=== PATIENT | female | born 1965 | race Caucasian/White ===

== ENCOUNTER 2016-09-26 12:22 | Emergency (ER) | payer BC ==
[2016-09-26] MEDS: Sodium Chloride 0.9% 1,000 ML IV ONE (13:11)
[2016-09-26] MEDS: Metoclopramide 10 MG/2 ML SDV IV ONE (13:12)
[2016-09-26] MEDS: Ketorolac 30 MG/ML SDV IVPUSH ONE (13:16)
[2016-09-26] MEDS: diphenhydrAMINE 50 MG/ML SDV IVPUSH ONE (13:21)
[2016-09-26] MEDS: LORazepam 2 MG/ML MDV IVPUSH ONE (13:26)
--- NOTE | 2016-09-26 13:50 | EDM.PDOC ---
ED HPI GENERAL MEDICAL PROBLEM - General Chief Complaint: Headache Stated Complaint: MIGRAINE Time Seen by Provider: 09/26/16 12:40 Source of Information: Reports: Patient History Limitations: Reports: No limitations - History of Present Illness INITIAL COMMENTS - FREE TEXT/NARRATIVE: HISTORY AND PHYSICAL: History of present illness: Patient is a 50-year-old female who is being treated currently for her breast cancer. She comes to the ED from the cancer Center today because of a headache that she has had for 2 weeks. She is also supposed to be getting chemotherapy tomorrow and wasn't the [facility] for blood work for her appointment tomorrow. She has an MRI scheduled of the head tomorrow because of these headaches. She has history of migraines that she would usually use Imitrex for which almost always helped stop her migraine. They feel like it hasn't been as effective since she developed cancer. None of her home medications have been helping with her headache. She feels like it is similar to her typical migraines other than it is just more persistent. She states over the last 2 weeks she has had some improvement and will think she is getting better and then the severity intensifies again. Today she feels like the pain is unbearable. Last week she got Toradol one time in the cancer center to help with the headache but this did not resolve any of her symptoms. She was also given morphine one but again did not help at all. Today she was a little more nauseated but feels okay right now. She denies vision changes. No photophobia. Her symptoms are not made worse with noise. She denies pain with eye movement. There has been no trauma to the head. Review of systems: As per history of present illness and below otherwise all systems reviewed and negative. Past medical history: As per history of present illness and as reviewed below otherwise noncontributory. Surgical history: As per history of present illness and as reviewed below otherwise noncontributory. Social history: No reported history of drug or alcohol abuse. Family history: As per history of present illness and as reviewed below otherwise noncontributory. Physical exam: HEENT: Atraumatic, normocephalic, pupils reactive, mucous membranes moist, throat clear, neck supple, nontender, trachea midline. Lungs: Clear to auscultation, breath sounds equal bilaterally, chest nontender. Heart: S1S2, regular, negative for clicks, rubs, or JVD. Abdomen: Soft, nondistended, nontender. Pelvis: Stable nontender. Genitourinary: Deferred. Rectal: Deferred. Extremities: Atraumatic. Neurovascular unremarkable. Neuro: Awake, alert, oriented. Cranial nerves II through XII unremarkable. Cerebellum unremarkable. Motor and sensory unremarkable throughout. Exam nonfocal. Therapeutics: IV fluids, Reglan, Benadryl, Ativan, toradol Impression: Migraine Plan: Patient's pain improved from a 9 to a 4 but she still felt like she maybe wanted something more to try to help. I did not have a problem giving her one dose of dilaudid and then she will go home and follow up tomorrow as scheduled. Her and her were comfortable with this plan. Definitive disposition and diagnosis as appropriate pending reevaluation and review of above. Headache Pain Score (Numeric/FACES): 9 - Related Data Allergies Allergy/AdvReac Type Severity Reaction Status Date / Time Penicillins Allergy Nausea and Verified 09/26/16 12:41 Vomiting Home Meds: Home Meds ALPRAZolam [Alprazolam] 1 tab PO ASDIRECTED PRN 04/27/15 [History] SUMAtriptan Succinate [Imitrex] 100 mg PO ASDIRECTED PRN 04/27/15 [History] traMADol [Ultram] 1 - 2 tab PO BID PRN 04/27/15 [History] Calcium Carbonate/Vitamin D3 [Calcium 600 + Vit D 200] 1 - 2 tab PO DAILY [History] Fish Oil/[place]-3 Fatty Acids [Fish Oil 1,000 MG] 1 cap PO BID 03/26/16 [History] Minocycline HCl 1 cap PO BID PRN 03/26/16 [History] Vit B12/Fa/Pyridoxine HCl/AA15 [Glycotrol] 1,000 mcg PO DAILY 03/26/16 [History] Vit D3 & K/Berberine HCl/Hops [Ostera] 1,000 unit PO DAILY 03/26/16 [History] Docusate Sodium [Colace] 100 mg PO BID #30 cap 05/09/16 [Rx] Hydrocodone/Acetaminophen [[place] 5-325] 1 tab PO Q4H PRN #40 tablet 05/09/16 [Rx ] Past Medical History HEENT History: Reports: Allergic rhinitis Other HEENT History: wears one contact Cardiovascular History: Reports: Other (see below) Other Cardiovascular History: has SVT, will get cardiac ablation next two years Respiratory History: Reports: Sleep apnea Other Respiratory History: uses CPAP sometimes- tends to get sinus infection when using it Gastrointestinal History: Reports: None Genitourinary History: Reports: None 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 , Musculoskeletal History: Reports: Fracture, Fibromyalgia, Osteoarthritis Other Musculoskeletal History: fx of left ankle, foot Neurological History: Reports: Migraines Psychiatric History: Reports: ADHD, Anxiety, Panic attack, PTSD Endocrine/Metabolic History: Reports: Obesity/BMI 30+ Hematologic History: Reports: Blood transfusion(s) Other Hematologic History: as a child Immunologic History: Reports: None Oncologic (Cancer) History: Reports: Breast Dermatologic History: Reports: Other (see below) Other Dermatologic History: rosacea - Infectious Disease History Infectious Disease History: Reports: Shingles - Past Surgical History Head Surgeries/Procedures: Reports: None HEENT Surgical History: Reports: Naso-sinus surgery Cardiovascular Surgical History: Reports: None Respiratory Surgical History: Reports: None GI Surgical History: Reports: None Female Surgical History: Reports: D&C, Other (see below) Other Female Surgeries/Procedures: Laparoscopy with Salpingectomy (ectopic ) Endocrine Surgical History: Reports: None Neurological Surgical History: Reports: None Musculoskeletal Surgical History: Reports: ORIF Other Musculoskeletal Surgeries/Procedures:: left ankle, surgical fx of left femur to shorten leg Oncologic Surgical History: Reports: Lumpectomy Other Oncologic Surgeries/Procedures: right side Dermatological Surgical History: Reports: None Social & Family History - Tobacco Use Smoking Status *Q: Former Smoker - Caffeine Use Caffeine Use: Reports: Coffee Caffeine Use Comment: 1 cup/day - Recreational Drug Use Recreational Drug Use: No Drug Use in Last 12 Months: No ED ROS GENERAL - Review of Systems Review Of Systems: ROS reveals no pertinent complaints other than HPI. ED EXAM, GENERAL - Physical Exam Exam: See Below (See HPI.) Course - Vital Signs Last Recorded V/S: Last Vital Signs Temp 36.7 C 09/26/16 12:41 Pulse 91 09/26/16 14:05 Resp 18 09/26/16 14:05 BP 108/62 09/26/16 14:05 Pulse Ox 100 09/26/16 14:05 - Orders/Labs/Meds Meds: Medications Discontinued Medications Generic Name Dose Route Start Last Admin Trade Name Jaz PRN Reason Stop Dose Admin Diphenhydramine HCl 25 mg 09/26/16 12:55 09/26/16 13:21 Benadryl IVPUSH 09/26/16 12:56 25 mg ONETIME ONE Administration Hydromorphone HCl 1 mg 09/26/16 14:12 09/26/16 14:29 Dilaudid IVPUSH 09/26/16 14:13 1 mg ONETIME ONE Administration Sodium Chloride 1,000 mls @ 999 mls/hr 09/26/16 12:55 09/26/16 13:11 Normal Saline IV 09/26/16 13:55 999 mls/hr STAT ONE Administration Ketorolac Tromethamine 30 mg 09/26/16 12:55 09/26/16 13:16 Toradol IVPUSH 09/26/16 12:56 30 mg ONETIME ONE Administration Lorazepam 1 mg 09/26/16 12:55 09/26/16 13:26 Ativan IVPUSH 09/26/16 12:56 1 mg ONETIME ONE Administration Metoclopramide HCl 10 mg 09/26/16 12:55 09/26/16 13:12 Reglan IV 09/26/16 12:56 10 mg ONETIME ONE Administration Departure - Departure Time of Disposition: 14:33 Disposition: Home, Self-Care 01 Clinical Impression: Migraine Forms: ED Department Discharge Additional Instructions: The following information is given to patients seen in the emergency department who are being discharged to home. This information is to outline your options for follow-up care. We provide all patients seen in our emergency department with a follow-up referral. The need for follow-up, as well as the timing and circumstances, are variable depending upon the specifics of your emergency department visit. If you don't have a primary care physician on staff, we will provide you with a referral. We always advise you to contact your personal physician following an emergency department visit to inform them of the circumstance of the visit and for follow-up with them and/or the need for any referrals to a consulting specialist. The emergency department will also refer you to a specialist when appropriate. This referral assures that you have the opportunity for follow-up care with a specialist. All of these measure are taken in an effort to provide you with optimal care, which includes your follow-up. Under all circumstances we always encourage you to contact your private physician who remains a resource for coordinating your care. When calling for follow-up care, please make the office aware that this follow-up is from your recent emergency room visit. If for any reason you are refused follow-up, please contact the [facility] Emergency Department at and asked to speak to the emergency department charge nurse. Followup tomorrow as scheduled for your MRI and other appointments.
[2016-09-26] MEDS: HYDROmorphone 2 MG/ML Syringe IVPUSH ONE (14:29)
[2016-09-26 16:14] VITALS: BP 117/61
== END 2016-09-26 14:51 | disposition home or self-care (01) ==
LOC: MW.ED 12:22
DX: G43.909 Migraine, unspecified, not intractable, without status migrainosus (principal); G47.30 Sleep apnea, unspecified; M19.90 Unspecified osteoarthritis, unspecified site; F41.0 Panic disorder [episodic paroxysmal anxiety]; E66.9 Obesity, unspecified; Z98.890 Other specified postprocedural states; Z87.891 Personal history of nicotine dependence; Z85.3 Personal history of malignant neoplasm of breast; Z79.899 Other long term (current) drug therapy; Z88.0 Allergy status to penicillin; Z68.29 Body mass index [BMI] 29.0-29.9, adult
CPT/HCPCS: 96361; 96374; 96375; 99284; J1170; J1200; J1642; J1885; J2060; J2765; J7040

== ENCOUNTER 2017-01-17 10:55 | Emergency (ER) | payer BC, OTHER ==
[2017-01-17] MEDS ORDERED: Adenosine 6 MG/2 ML SDV ONE ×2 (10:57→11:06)
[2017-01-17] MEDS ORDERED: Adenosine 6 MG/2 ML SDV IVPUSH ONE ×2 (11:15→11:16)
--- NOTE | 2017-01-17 11:15 | PCM.SN ---
- Free Text/Narrative Note: This is Dr. Farrell dictating an addendum/procedure note as a supervising physician on this case. I agree with history and physical as dictated and the patient does reiterate to me that she has had this happen "1000 times" but has never come to the ED for medication. She states she usually bears down or taking convert herself out of it. The patient was sent up from oncology clinic for evaluation of SVT which was identified at initial presentation to the ED. Patient has a long-standing history of breast cancer for which she has received surgical chemotherapy and radiation therapy. She states she has had no recent fever chest pain vomiting or diarrhea but does admit that she drinks more caffeine than hydration. She does have a history of some anxiety and she does state that in the past she has taken alprazolam and she has been able to convert herself out of SVT After we identified the rhythm is SVT we discussed with the patient that she would be receiving medication to convert her as also but did not work. The patient was advised of what she might expect with the medication and 6 mg of adenosine was given to the patient did experience symptomatology but there was no change in the cardiac rhythm. After the second dose of 12 mg of adenosine the patient did have a positive and converted to sinus tach at 119. The patient tolerated both of these doses of adenosine without complication and we will continue with our workup and referral to cardiology
[2017-01-17] MEDS ORDERED: Sodium Chloride 0.9% 1,000 ML IV ONE (11:16)
--- NOTE | 2017-01-17 11:26 | EDM.PDOC ---
ED HPI GENERAL MEDICAL PROBLEM - General Chief Complaint: Chest Pain Stated Complaint: RACING HEART Time Seen by Provider: 01/17/17 11:00 Source of Information: Reports: Patient History Limitations: Reports: No Limitations - History of Present Illness INITIAL COMMENTS - FREE TEXT/NARRATIVE: History of present illness: [51-year-old female presenting with SVT. Sent over by primary care secondary to concern that she needed to be converted.] Review of systems: As per history of present illness and below otherwise all systems reviewed and negative. Past medical history: As per history of present illness and as reviewed below otherwise noncontributory. Surgical history: As per history of present illness and as reviewed below otherwise noncontributory. Social history: No reported history of drug or alcohol abuse. Family history: As per history of present illness and as reviewed below otherwise noncontributory. Physical exam: HEENT: Atraumatic, normocephalic, pupils reactive, negative for conjunctival pallor or scleral icterus, mucous membranes moist, throat clear, neck supple, nontender, trachea midline. Lungs: Clear to auscultation, breath sounds equal bilaterally, chest nontender. Heart: SVT per monitor negative for clicks, rubs, or JVD. Abdomen: Soft, nondistended, nontender. Negative for masses or hepatosplenomegaly. Negative for costovertebral tenderness. Pelvis: Stable nontender. Genitourinary: Deferred. Rectal: Deferred. Extremities: Atraumatic, negative for cords or calf pain. Neurovascular unremarkable. Neuro: Awake, alert, oriented. Cranial nerves II through XII unremarkable. Cerebellum unremarkable. Motor and sensory unremarkable throughout. Exam nonfocal. Dr. Nayak here to consult the patient decision to start her on diltiazem and follow up with him in the clinic discussed with the patient she agreed and the appointment and prescription were made by cardiology. Please see procedure note for adenosine. Diagnostics: [EKG before and after] Therapeutics: [Adenosine 6 mg, repeat dose of 12 mg] Impression: [SVT with conversion] Plan: [Consult cards] Definitive disposition and diagnosis as appropriate pending reevaluation and review of above. - Related Data Allergies Allergy/AdvReac Type Severity Reaction Status Date / Time Penicillins Allergy Nausea and Verified 01/17/17 11:13 Vomiting Home Meds: Home Meds ALPRAZolam [Alprazolam] 1 tab PO ASDIRECTED PRN 04/27/15 [History] SUMAtriptan Succinate [Imitrex] 100 mg PO ASDIRECTED PRN 04/27/15 [History] traMADol [Ultram] 1 - 2 tab PO BID PRN 04/27/15 [History] Calcium Carbonate/Vitamin D3 [Calcium 600 + Vit D 200] 1 - 2 tab PO DAILY [History] Fish Oil/[place]-3 Fatty Acids [Fish Oil 1,000 MG] 1 cap PO BID 03/26/16 [History] Minocycline HCl 1 cap PO BID PRN 03/26/16 [History] Vit B12/Fa/Pyridoxine HCl/AA15 [Glycotrol] 1,000 mcg PO DAILY 03/26/16 [History] Vit D3 & K/Berber[place] HCl/Hops [Ostera] 1,000 unit PO DAILY 03/26/16 [History] Docusate Sodium [Colace] 100 mg PO BID #30 cap 05/09/16 [Rx] Hydrocodone/Acetaminophen [[place] 5-325] 1 tab PO Q4H PRN #40 tablet 05/09/16 [Rx ] Past Medical History HEENT History: Reports: Allergic Rhinitis Other HEENT History: wears one contact Cardiovascular History: Reports: Other (See Below) Other Cardiovascular History: has SVT, will get cardiac ablation next two years Respiratory History: Reports: Sleep Apnea Other Respiratory History: uses CPAP sometimes- tends to get sinus infection when using it Gastrointestinal History: Reports: None Genitourinary History: Reports: None 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 , Musculoskeletal History: Reports: Fracture, Fibromyalgia, Osteoarthritis Other Musculoskeletal History: fx of left ankle, foot Neurological History: Reports: Migraines Psychiatric History: Reports: ADHD, Anxiety, Panic Attack, PTSD Endocrine/Metabolic History: Reports: Obesity/BMI 30+ Hematologic History: Reports: Blood Transfusion(s) Other Hematologic History: as a child Immunologic History: Reports: None Oncologic (Cancer) History: Reports: Breast Dermatologic History: Reports: Other (See Below) Other Dermatologic History: rosacea - Infectious Disease History Infectious Disease History: Reports: Shingles - Past Surgical History HEENT Surgical History: Reports: Naso-Sinus Surgery Female Surgical History: Reports: D&C, Other (See Below) Social & Family History - Tobacco Use Smoking Status *Q: Former Smoker - Caffeine Use Caffeine Use: Reports: Coffee Caffeine Use Comment: 1 cup/day - Recreational Drug Use Recreational Drug Use: No Drug Use in Last 12 Months: No ED ROS GENERAL - Review of Systems Review Of Systems: See Below (See history of present illness) ED EXAM, GENERAL - Physical Exam Exam: See Below (See history of present illness) Course - Vital Signs Last Recorded V/S: Last Vital Signs Temp 36.4 C 01/17/17 10:57 Pulse 211 H 01/17/17 10:57 Resp 18 01/17/17 10:57 BP 172/112 H 01/17/17 10:57 Pulse Ox 97 01/17/17 10:57 - Orders/Labs/Meds Orders: Active Orders 24 hr Category Date Time Status EKG 12 Lead [EKG Documentation Completion] [RC] STAT Care 01/17/17 11:29 Active EKG 12 Lead [EKG Documentation Completion] [RC] STAT Care 01/17/17 11:30 Active EKG 12 Lead [EKG Documentation Completion] [RC] STAT Care 01/17/17 11:30 Active Notify Provider Consults [RC] ASDIRECTED Care 01/17/17 12:11 Active Consult to Physician [CONS] Stat Cons 01/17/17 12:10 Active COMPREHENSIVE METABOLIC PN,CMP [CHEM] Stat Lab 01/17/17 12:28 Results MAGNESIUM [CHEM] Stat Lab 01/17/17 12:28 Results TSH [CHEM] Stat Lab 01/17/17 12:28 Results Labs: Laboratory Tests 01/17/17 01/17/17 Range/Units 12:28 12:28 WBC 5.18 (4.0-11.0) K/uL RBC 4.42 (4.30-5.90) M/uL Hgb 12.3 (12.0-16.0) g/dL Hct 37.4 (36.0-46.0) % MCV 84.6 (80.0-98.0) fL MCH 27.8 (27.0-32.0) pg MCHC 32.9 (31.0-37.0) g/dL RDW Std Deviation 44.3 (28.0-62.0) fl RDW Coeff of Shlomo 14 (11.0-15.0) % Plt Count 175 (150-400) K/uL MPV 10.50 (7.40-12.00) fL Neut % (Auto) 64.7 (48.0-80.0) % Lymph % (Auto) 23.7 (16.0-40.0) % [place] % (Auto) 8.1 (0.0-15.0) % Eos % (Auto) 2.9 (0.0-7.0) % Baso % (Auto) 0.6 (0.0-1.5) % Neut # (Auto) 3.4 (1.4-5.7) K/uL Lymph # (Auto) 1.2 (0.6-2.4) K/uL [place] # (Auto) 0.4 (0.0-0.8) K/uL Eos # (Auto) 0.2 (0.0-0.7) K/uL Baso # (Auto) 0.0 (0.0-0.1) K/uL Nucleated RBC % 0.0 /100WBC Nucleated RBCs # 0 K/uL Sodium 141 (136-146) mmol/L Potassium 4.1 (3.5-5.1) mmol/L Chloride 109 (98-110) mmol/L Carbon Dioxide 26 (21-31) mmol/L BUN 11 (6.0-23.0) mg/dL Creatinine 0.7 (0.6-1.5) mg/dL Est Cr Clr Drug Dosing 97.13 mL/min Estimated GFR (MDRD) > 60.0 ml/min Glucose 86 (60-110) mg/dL Calcium 8.9 (8.8-10.8) mg/dL Magnesium 1.3 L (1.5-2.3) mEq/L Total Bilirubin 0.3 (0.1-1.5) mg/dL AST 34 (5-40) IU/L ALT 47 (8-54) IU/L Alkaline Phosphatase 77 (40-150) Total Protein 6.3 (6.0-8.0) g/dL Albumin 3.7 (3.5-5.0) g/dL Globulin 2.6 (2.0-3.5) g/dL Albumin/Globulin Ratio 1.4 (1.3-2.8) Meds: Medications Discontinued Medications Generic Name Dose Route Start Last Admin Trade Name Freq PRN Reason Stop Dose Admin Adenosine Confirm 01/17/17 10:57 01/17/17 11:17 Adenocard Administered 01/17/17 10:58 Not Given Dose 12 mg .ROUTE .STK-MED ONE Adenosine Confirm 01/17/17 11:06 01/17/17 11:17 Adenocard Administered 01/17/17 11:07 Not Given Dose 6 mg .ROUTE .STK-MED ONE Adenosine 6 mg 01/17/17 11:15 01/17/17 11:19 Adenocard IVPUSH 01/17/17 11:16 6 mg NOW ONE Administration Adenosine 12 mg 01/17/17 11:16 01/17/17 11:19 Adenocard IVPUSH 01/17/17 11:17 12 mg NOW ONE Administration Heparin Sodium (Porcine) Confirm 01/17/17 11:55 Heparin Lock Flush 100 Units/Ml Administered 01/17/17 11:56 Dose 500 units .ROUTE .STK-MED ONE Sodium Chloride 1,000 mls @ 999 mls/hr 01/17/17 11:16 01/17/17 11:19 Normal Saline IV 01/17/17 12:16 999 mls/hr .Bolus ONE Administration Departure - Departure Time of Disposition: 13:25 Disposition: Home, Self-Care 01 Condition: Good Clinical Impression: Rapid heart rate Forms: ED Department Discharge Additional Instructions: The following information is given to patients seen in the emergency department who are being discharged to home. This information is to outline your options for follow-up care. We provide all patients seen in our emergency department with a follow-up referral. The need for follow-up, as well as the timing and circumstances, are variable depending upon the specifics of your emergency department visit. If you don't have a primary care physician on staff, we will provide you with a referral. We always advise you to contact your personal physician following an emergency department visit to inform them of the circumstance of the visit and for follow-up with them and/or the need for any referrals to a consulting specialist. The emergency department will also refer you to a specialist when appropriate. This referral assures that you have the opportunity for follow-up care with a specialist. All of these measure are taken in an effort to provide you with optimal care, which includes your follow-up. Under all circumstances we always encourage you to contact your private physician who remains a resource for coordinating your care. When calling for follow-up care, please make the office aware that this follow-up is from your recent emergency room visit. If for any reason you are refused follow-up, please contact the [facility] Emergency Department at and asked to speak to the emergency department charge nurse. Follow-up with Dr. Nayak as discussed Return to ER as needed as discussed - My Orders Last 24 Hours: My Active Orders 01/17/17 12:28 COMPREHENSIVE METABOLIC PN,CMP [CHEM] Stat MAGNESIUM [CHEM] Stat TSH [CHEM] Stat - Assessment/Plan Last 24 Hours: My Active Orders 01/17/17 12:28 COMPREHENSIVE METABOLIC PN,CMP [CHEM] Stat MAGNESIUM [CHEM] Stat TSH [CHEM] Stat
[2017-01-17 13:13] LABS: CHLORIDE,CL 109 mmol/L (98-110); SODIUM,NA 141 mmol/L (136-146)
--- NOTE | 2017-01-17 14:11 | CONS ---
DATE OF CONSULTATION: 01/17/2017 DATE OF : 1965 PRIMARY CARE PHYSICIAN: Clifton William M.D. REASON FOR CONSULTATION: SVT. HISTORY: This is a 51-year-old female with a history of breast cancer status post lumpectomy and chemo radiation and history SVT who presented to the emergency room from Dr. Marquez's office for a fast heart rate. She stated that she had a symptom of heart racing yesterday. She noted that she may have SVT, she tried bearing down, it lasted only 15 minutes after she tried bearing down, and it seemed to stop the heart racing. Today, when she was going out for Dr. Marquez's appointment, she started feeling heart racing but she thought that she felt fine, may be some heaviness and then some shortness of breath. She has had this similar symptom in the past several times and she decided not to go to the emergency room and not to call her doctor when she was in the office of the Dr. Marquez. Dr. Marquez was concerned about tachycardia and recommended her to come to the emergency room for further workup. When she was here in the emergency room, she was found to have a heart rate of 205, with a blood pressure initially was high at 172/112. She denied history of high blood pressure, diabetes, or hyperlipidemia. She has been seen by Dr. Roman in [place] before. She was given 6 mg of adenosine and then followed by 12 mg of adenosine, which successfully converted to sinus rhythm. She did not take any medication for her SVT. The only medication that she takes is Arimidex for her breast cancer. Currently, she is in sinus rhythm and she feels fine. She was recommended to have an SVT ablation, however. She was diagnosed with breast cancer since last March and she has been postponing her procedures. She had an echo done, probably one and half years ago. She has never been told that she had a heart failure, weak heart, or heart attack. She never had a stress test done. She may have tried diltiazem before but she did not recall why she did not take it. PAST MEDICAL HISTORY: Includes history of SVT diagnosed 2 to 3 years ago with heart monitor and has been followed by Dr. Roman in [place]. Breast cancer status post lumpectomy, chemoradiation, and hormonal therapy. ALLERGY: Penicillin. REVIEW OF SYSTEMS: A 12-point review of systems has been negative except indicated in the HPI. MEDICATION: Arimidex. PHYSICAL EXAMINATION: VITAL SIGNS: Blood pressure is elevated at 170/112, heart rate 211, converted to sinus rhythm with a heart rate of 119 and 110, O2 saturation of 97%, respiration rate 18 on room air, temperature 36.4. HEENT: No pallor, no jaundice, no JVD. HEART: Normal S1, S2. No murmur. LUNGS: Clear. ABDOMEN: Soft, nontender. Bowel sounds present. No hepatosplenomegaly. EXTREMITIES: No edema. The left leg has been casted for a fracture. INVESTIGATIONS: CBC show WBC of 5, hematocrit of 37, hemoglobin 12, and platelet 175. ASSESSMENT: This is a 51-year-old female with a breast cancer stage 1B status post lumpectomy, chemotherapy, radiation, with a history of recurrent supraventricular tachycardia. PLAN: I recommended her to take Cardizem, I gave her a prescription for Cardizem 120 once a day, two in the pharmacy. I will also obtain a cardiac work up in [facility] to review and I will also make an appointment to see her in a month after starting the Cardizem, and also offer her the option of ablation but she wanted to deal with her breast cancer and then she will decide about the ablation procedure. IJEOMA OAKES /[id number]
[2017-01-17 14:52] VITALS: BP 137/91
== END 2017-01-17 13:39 | disposition home or self-care (01) ==
LOC: MW.ED 10:55
DX: I47.1 Supraventricular tachycardia (principal); G47.30 Sleep apnea, unspecified; M19.90 Unspecified osteoarthritis, unspecified site; F41.0 Panic disorder [episodic paroxysmal anxiety]; E66.9 Obesity, unspecified; Z86.2 Personal history of diseases of the blood and blood-forming organs and certain disorders involving the immune mechanism; Z85.3 Personal history of malignant neoplasm of breast; Z98.890 Other specified postprocedural states; Z87.891 Personal history of nicotine dependence; Z79.899 Other long term (current) drug therapy; Z88.0 Allergy status to penicillin
CPT/HCPCS: 36415; 80053; 83735; 84443; 85025; 93005; 96361; 96374; 99285; J0153; J1642; J7040; 99283

== ENCOUNTER 2017-02-01 07:11 | Day surgery (SDC) | payer BC ==
[~2017-02-01 07:11] MED LIST: Lactated Ringers 1,000 ML IV SCH
[2017-02-01] MEDS ORDERED: Bupivacaine 0.5% 10 ML SDV ONE (07:40)
[2017-02-01] MEDS ORDERED: Lidocaine 1% 20 ML MDV ONE (07:40)
[2017-02-01] MEDS ORDERED: Lidocaine 2% 5 ML SDV ONE (08:21)
[2017-02-01] MEDS ORDERED: Midazolam 1 MG/ML 2 ML SDV ONE (08:22)
[2017-02-01] MEDS ORDERED: fentaNYL 250 MCG/5 ML SDV ONE (08:22)
[2017-02-01] MEDS ORDERED: Propofol 200 MG/20 ML SDV ONE ×3 (08:22→10:51)
[2017-02-01] MEDS ORDERED: fentaNYL 100 MCG/2 ML SDV ONE (08:22)
[2017-02-01] MEDS ORDERED: Clindamycin Phosphate in D5W 600 MG in Premix Bag 1 BAG IV ONE ×2 (08:30)
--- NOTE | 2017-02-01 08:37 | PCM.PREANE ---
Preanesthetic Assessment - Anesthesia/Transfusion/Family Hx Anesthesia History: Prior Anesthesia Without Reaction Family History of Anesthesia Reaction: No Transfusion History: Prior Transfusion Without Reaction Intubation History: Unknown - Review of Systems General: No Symptoms Pulmonary: No Symptoms Cardiovascular: No Symptoms Gastrointestinal: No Symptoms Neurological: No Symptoms Other: Reports: None - Physical Assessment O2 Sat by Pulse Oximetry: 94 Respiratory Rate: 16 Vital Signs: Last Vital Signs Temp 36.1 C 02/01/17 07:39 Pulse 97 02/01/17 07:39 Resp 16 02/01/17 07:39 BP 115/72 02/01/17 07:39 Pulse Ox 94 L 02/01/17 07:39 Height: 1.75 m Weight: 107.501 kg ASA Class: 3 Mental Status: Alert & Oriented x3 Airway Class: Mallampati = 2 Dentition: Reports: Normal Dentition Thyro-Mental Finger Breadths: 3 Mouth Opening Finger Breadths: 2 ROM/Head Extension: Full Lungs: Clear to Auscultation, Normal Respiratory Effort Cardiovascular: Regular Rate, Regular Rhythm - Lab Values: Laboratory Last Values Urine HCG, Qual NEGATIVE (NEGATIVE) 02/01/17 07:33 - Allergies Allergies/Adverse Reactions: Allergies Allergy/AdvReac Type Severity Reaction Status Date / Time Penicillins Allergy Nausea and Verified 01/17/17 11:13 Vomiting - Blood Blood Available: No - Anesthesia Plan Pre-Op Medication Ordered: None - Acknowledgements Anesthesia Type Planned: General Anesthesia Pt an Appropriate Candidate for the Planned Anesthesia: Yes Alternatives and Risks of Anesthesia Discussed w Pt/Guardian: Yes Pt/Guardian Understands and Agrees with Anesthesia Plan: Yes PreAnesthesia Questionnaire HEENT History: Reports: Allergic Rhinitis Other HEENT History: wears one contact Cardiovascular History: Reports: Other (See Below) Other Cardiovascular History: has SVT since age 18, will get cardiac ablation next two years. SVT sometimes twice a day sometimes not for weeks lasting from 2 min. to 6-7 hours. She was in the ER for iv treatment of SVT. Respiratory History: Reports: Sleep Apnea Other Respiratory History: uses CPAP sometimes, has not used in 8 months due to cancer tx Gastrointestinal History: Reports: None Genitourinary History: Reports: None IN[employer]OR [employer]ANDSC[employer]CHITECT History: Reports: Ectopic , Musculoskeletal History: Reports: Fracture, Fibromyalgia, Osteoarthritis Other Musculoskeletal History: fx of left ankle, foot Neurological History: Reports: Migraines, Other (See Below) (chronic pain) Psychiatric History: Reports: ADHD, Anxiety, Panic Attack, PTSD Endocrine/Metabolic History: Reports: Obesity/BMI 30+ Hematologic History: Reports: Blood Transfusion(s) Other Hematologic History: "transfusion with my leg surgery" Immunologic History: Reports: None Oncologic (Cancer) History: Reports: Breast Other Oncologic History: ezequiel cath placement for chemo Dermatologic History: Reports: Other (See Below) Other Dermatologic History: rosacea - Infectious Disease History Infectious Disease History: Reports: Shingles - Past Surgical History Head Surgeries/Procedures: Reports: None HEENT Surgical History: Reports: Naso-Sinus Surgery, Tonsillectomy Cardiovascular Surgical History: Reports: None Respiratory Surgical History: Reports: None GI Surgical History: Reports: None Female Surgical History: Reports: Breast Biopsy, D&C, Mastectomy, Other (See Below) Other Female Surgeries/Procedures: Laparoscopy with Salpingectomy (ectopic ), breast lumpectomy for cancer Endocrine Surgical History: Reports: None Neurological Surgical History: Reports: None Musculoskeletal Surgical History: Reports: ORIF Other Musculoskeletal Surgeries/Procedures:: left ankle, surgical fx of left femur to shorten leg Oncologic Surgical History: Reports: Lumpectomy Other Oncologic Surgeries/Procedures: right side Dermatological Surgical History: Reports: None - SUBSTANCE USE Smoking Status *Q: Former Smoker Tobacco Use Within Last Twelve Months: No Recreational Drug Use History: No - HOME MEDS Home Medications: Home Meds ALPRAZolam [Alprazolam] 1 tab PO ASDIRECTED PRN 04/27/15 [History] SUMAtriptan Succinate [Imitrex] 100 mg PO ASDIRECTED PRN 04/27/15 [History] traMADol [Ultram] 1 - 2 tab PO BID PRN 04/27/15 [History] Calcium Carbonate/Vitamin D3 [Calcium 600 + Vit D 200] 1 - 2 tab PO DAILY [History] Fish Oil/[place]-3 Fatty Acids [Fish Oil 1,000 MG] 1 cap PO BID 03/26/16 [History] Minocycline HCl 1 cap PO BID PRN 03/26/16 [History] Vit B12/Fa/Pyridoxine HCl/AA15 [Glycotrol] 1,000 mcg PO DAILY 03/26/16 [History] Anastrozole [Arimidex] 1 mg PO ASDIRECTED 01/30/17 [History] Cholecalciferol (Vitamin D3) [Vitamin D3] 1,000 units PO DAILY 01/30/17 [History ] Naratriptan HCl 1 tab PO ASDIRECTED PRN 01/30/17 [History] Propranolol HCl [Propranolol] 60 mg PO DAILY 01/30/17 [History] buPROPion HCl [Wellbutrin Xl] 300 mg PO DAILY 01/30/17 [History] - CURRENT (IN HOUSE) MEDS Current Meds: Current Medications Lactated Ringer's (Ringers, Lactated) 1,000 mls @ 125 mls/hr IV ASDIRECTED MULUGETA Last Admin: 02/01/17 07:46 Dose: 125 mls/hr Clindamycin Phosphate 600 mg/ (Premix) 50 mls @ 100 mls/hr IV ONETIME ONE Stop: 02/01/17 08:59 Discontinued Medications Bupivacaine HCl (Sensorcaine-Mpf 0.5%) Confirm Administered Dose 10 ml .ROUTE .STK-MED ONE Stop: 02/01/17 07:41 Fentanyl (Sublimaze) Confirm Administered Dose 100 mcg .ROUTE .STK-MED ONE Stop: 02/01/17 08:23 Fentanyl (Sublimaze) Confirm Administered Dose 250 mcg .ROUTE .STK-MED ONE Stop: 02/01/17 08:23 Clindamycin Phosphate 600 mg/ (Sodium Chloride) 54 mls @ 100 mls/hr IV ONETIME ONE Stop: 01/31/17 22:12 Lidocaine (Xylocaine-Mpf 2%) Confirm Administered Dose 10 ml .ROUTE .STK-MED ONE Stop: 02/01/17 08:22 Lidocaine HCl (Xylocaine 1%) Confirm Administered Dose 20 ml .ROUTE .STK-MED ONE Stop: 02/01/17 07:41 Midazolam HCl (Versed 1 Mg/Ml) Confirm Administered Dose 2 mg .ROUTE .STK-MED ONE Stop: 02/01/17 08:23 Propofol (Diprivan 20 Ml) Confirm Administered Dose 400 mg .ROUTE .STK-MED ONE Stop: 02/01/17 08:23
--- NOTE | 2017-02-01 10:03 | PN ---
Preoperative Progress Note IDENTIFICATION: The patient is a 51-year-old female. TIME: Approximately 9:10 a.m. PREOPERATIVE DIAGNOSIS: Stein fracture fifth metatarsal, left foot. PLANNED PROCEDURE: Open reduction with internal fixation of Stein fracture fifth metatarsal, left foot. CONSENT: Signed and in the chart. ANESTHESIA: General. The patient confirms n.p.o. since midnight. HISTORY AND PHYSICAL: Completed by Dr. Lexy Garner with no contraindications to surgery. ALLERGIES: Penicillin. MEDICATIONS: 1. Alprazolam 1 mg oral tablet, take one tablet daily as needed. 2. Anastrozole 1 mg oral tablet. 3. Bupropion HCl ER 300 mg oral tablet, extended release 24 hours. 4. Calcium 600-200 mg unit oral tablet 1 to 2 tablets orally daily. 5. Fish oil 1000 mg oral capsule, take one capsule twice daily. 6. Imitrex 100 mg oral tablet, one tablet as needed. 7. Minocycline HCl 100 mg oral tablet, take one capsule twice daily as needed for acne. 8. Naratriptan HCL 2.5 mg oral tablet, take one tablet for onset of headache may repeat once in 4 hours. 9. Propranolol HCL ER 60 mg oral capsule extended release 24 hours take one capsule daily. 10.Tramadol 50 mg oral tablet, take 1 to 2 tablets by mouth twice a day as needed for arthritic pain. 11.Vitamin B12 of 1000 mcg oral tablet, take one tablet daily as needed. 12.Vitamin D of 1000 units oral tablet take as directed. PAST MEDICAL HISTORY: Includes a history of adult ADHD, acute bronchitis, amenorrhea, chronic fatigue, depression, fibromyalgia, palpitations, sinusitis, sleep apnea, hypersomnia with sleep apnea, keratoacanthoma, migraine, perimenopausal vasomotor symptoms, seroma of the breast, supraclavicular fossa fullness, and she does have a history and is recovering from breast cancer treatment. LABORATORY DATA: INR 0.97, PTT 26.0, platelet count is 199, red blood cells 4.63, white blood cell 4.88, hematocrit 38.8, hemoglobin 13.0. Urinalysis was unremarkable. Chest x-ray showed no acute cardiopulmonary process. EKG was normal. So, the patient is presenting today for open reduction with internal fixation of Stein fracture left foot. No contraindications to surgery noted. No guarantees given or implied. LACEY / MODL /[id number]
[2017-02-01] MEDS ORDERED: Metoprolol Tartrate 5 MG/5 ML SDV ONE (10:09)
[2017-02-01] MEDS ORDERED: fentaNYL 100 MCG/2 ML SDV IVPUSH PRN (10:26)
--- NOTE | 2017-02-01 12:21 | PCM.OPNOTE ---
- General Post-Op/Procedure Note Date of Surgery/Procedure: 02/01/17 Operative Procedure(s): open reduction with internal fixation of fifth metatarsal fracture left foot Findings: consistent with diagnosis Pre Op Diagnosis: Stein fracture fifth metatarsal left foot Post-Op Diagnosis: Stein fracture fifth metatarsal left foot Anesthesia Technique: General LMA Primary Surgeon: Sarbjit Musa Anesthesia Provider: Girish Guillen Pathology: none EBL in mLs: 10 Complications: none Condition: Good Free Text/Narrative:: materials: Omid bone matrix 1 cc, Omid 4.0x30 mm screw x 1, 4-0 vicryl, 4- 0 Prolene injectables: 6 ml 0.5% Marcaine plain
[2017-02-01] MEDS ORDERED: Acetaminophen/HYDROcodone 325-5 MG Tab PO PRN (12:22)
--- NOTE | 2017-02-01 12:39 | PCM.POSTAN ---
POST ANESTHESIA ASSESSMENT - MENTAL STATUS Mental Status: Alert, Oriented - RESPIRATORY Respiratory Status: Respiratory Rate WNL, Airway Patent, O2 Saturation Stable - CARDIOVASCULAR CV Status: Pulse Rate WNL, Blood Pressure Stable - GASTROINTESTINAL GI Status: No Symptoms - PAIN Pain Score: 2 - POST OP HYDRATION Hydration Status: Adequate & Stable - OBSERVATIONS Free Text/Narrative:: no anesthesia problems
[2017-02-01 13:48] VITALS: BP 122/67
--- NOTE | 2017-02-02 01:09 | OR ---
SURGEON: Sarbjit Musa DPM DATE OF PROCEDURE: 02/01/2017 PREOPERATIVE DIAGNOSIS: Stein fracture, fifth metatarsal, left foot. POSTOPERATIVE DIAGNOSIS: Stein fracture, fifth metatarsal, left foot. PROCEDURE: Open reduction with internal fixation of Stein fracture fifth metatarsal, left foot. FINDINGS: Consistent with diagnosis. ANESTHESIA: General LMA. HEMOSTASIS: Above ankle pneumatic tourniquet inflated to a pressure of 250 mmHg after an Esmarch bandage exsanguination of the left lower extremity. PATHOLOGY: None. ESTIMATED BLOOD LOSS: 10 mL. COMPLICATIONS: None. CONDITION: The patient tolerated the procedure and the anesthesia well with no complications noted and recovered without any complications from both the procedure and the anesthesia. JUSTIFICATION FOR PROCEDURE: The patient is a 51-year-old female, who suffered a Stein fracture on the base of the fifth metatarsal of the left foot approximately two months ago and was treated conservatively for an extended period of time in a cast. Followup x- rays were suspicious and inconclusive, and so a CT was eventually ordered. 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 Therefore, after discussing this in detail with the patient, the patient indicated that she did not want to pursue further conservative treatment and I agreed that surgery was justified in order to achieve quicker healing and eventual healing. The patient elected for surgery and presents for surgical correction today. PROCEDURE IN DETAIL: The patient was brought to the operating room and placed on the operating table in the supine position and anesthesia was then induced. Preoperative x-rays were taken to evaluate the likely size of the necessary intramedullary screw to be placed and to better appreciate the positioning of the fracture. The patient was placed in a supine position, but rotated into more of a semi-lateral decubitus position prior to the beginning of surgery and an aseptic scrub and drape was performed in the usual aseptic manner. The incision site was planned prior to proceeding further. An Esmarch bandage exsanguination was performed of the left lower extremity and tourniquet inflated to a pressure of 250 mmHg. Tourniquet was located just above the malleoli of the left ankle. An incision was made along the base to mid shaft of the fifth metatarsal and was deepened using a curved mosquito hemostat. Small bleeders were cauterized as necessary with Bovie. The fracture site was identified and the site was debrided of any scar tissue that had been developing within the fracture site and was copiously irrigated with normal sterile saline. At this point, a second incision was made, this stab incision was both proximal and superior to the initial incision and was made to facilitate insertion of the intramedullary screw. Initially, a K-wire was positioned and advanced into the metatarsal shaft with every effort made to stay both high and inside relative to the base of the fifth metatarsal. The wire was advanced several times and retracted as necessary in order to achieve proper positioning, it was determined that rather than a 5 mm screw, a 4 mm screw would be used and therefore the wire was withdrawn and a replacement wire of slightly smaller diameter was used in order to enable the cannulated 4 mm screw to be placed over it. Tapping was also done prior to this and a drill bit was used as well to prepare the bone for insertion of the screw. A 4 mm diameter x 30 mm length [place] screw was then inserted over the guide wire. Intraoperative fluoroscopy was used liberally throughout the procedure to verify proper positioning of the screw. The screw was advanced and verified to be in appropriate position with all threads of the screw distal to the fracture line and with the cortical bone protected from over drilling while temporary hardware was removed with the screw left in place. At this point, both incision sites were flushed with copious amounts of normal sterile saline and dabbed dry, and a [place] bone matrix material consisting of 1 mL of DBM gel was injected into the fracture site in order to increase the probability of proper filling in closure of the fracture site. Both sites were then reapproximated with the deeper and subcutaneous tissue reapproximated with 4-0 Vicryl suture and the superficial skin reapproximated with 4-0 Prolene suture. I should note that the Omid screw inserted was an Asnis III titanium cannulated partially threaded screw measuring 4 mm diameter and 30 mm length. Due to low profile of the screw countersinking was not necessary in this procedure. Betadine-soaked Xeroform gauze was then placed over the incision sites followed by Kerlix gauze and Kerlix roll as well as a stockinette cast padding and then a posterior splint was applied and secured with 3 Jaret bandages. The pneumatic ankle tourniquet was deflated and the patient was noted to have a prompt hyperemic response to all digits of the left foot. Following a brief period in the recovery room, the patient was moved to the preoperative room and was to be discharged today with written and verbal instructions given to maintain nonweightbearing except for minimal weightbearing on the heel of the left in order to transfer to and from the bathroom as needed with assistance from crutches. Other than that, the patient has remained nonweightbearing utilizing crutches, scooter, and a wheelchair. The patient has been given a prescription for analgesic care. The patient has been given my cell phone number in the event that she has any concerns and the patient is to follow up in my office in 3 days. At the conclusion of the procedure prior to application of the splint and bandaging, a 6 mL of 0.5% Marcaine plain was infiltrated about the surgical site. MATERIALS: Include the Asnis III titanium [place] cannulated partially threaded, 30 mm length x 4 mm diameter screw and 1 mL of a [employer] DBM bone gel as well as 4-0 Vicryl and 4-0 Prolene suture. INJECTABLES: Consisting of 6 mL of 0.5% Marcaine plain. LACEY / CHAMP /[id number]
== END 2017-02-01 14:51 | disposition home or self-care (01) ==
LOC: MW.SDS 07:11
PROVIDERS: ATTEND Podiatrist Foot & Ankle Surgery
PROC: 0QSP04Z Reposition Left Metatarsal with Internal Fixation Device, Open Approach (ICD-10-PCS; principal; 2017-02-01)
DX: S92.352K Displaced fracture of fifth metatarsal bone, left foot, subsequent encounter for fracture with nonunion (principal); F41.9 Anxiety disorder, unspecified; M19.90 Unspecified osteoarthritis, unspecified site; G62.0 Drug-induced polyneuropathy; G89.29 Other chronic pain; F41.8 Other specified anxiety disorders; E78.5 Hyperlipidemia, unspecified; G47.33 Obstructive sleep apnea (adult) (pediatric); M81.0 Age-related osteoporosis without current pathological fracture; I47.1 Supraventricular tachycardia; M79.7 Fibromyalgia; E66.9 Obesity, unspecified; Z88.0 Allergy status to penicillin; Z85.3 Personal history of malignant neoplasm of breast; Z87.891 Personal history of nicotine dependence; Z99.89 Dependence on other enabling machines and devices; Z79.811 Long term (current) use of aromatase inhibitors; Z79.899 Other long term (current) drug therapy; Z90.10 Acquired absence of unspecified breast and nipple; Z90.79 Acquired absence of other genital organ(s); Z90.89 Acquired absence of other organs; Z98.890 Other specified postprocedural states; Z68.35 Body mass index [BMI] 35.0-35.9, adult
CPT/HCPCS: 28322; 81025; J2250; J3010; J7120; 01480; 76000; C1713; C1769; J2704

== ENCOUNTER 2017-06-06 11:04 | Day surgery (SDC) | payer BC ==
[~2017-06-06 11:04] MED LIST changes: +Sodium Chloride 0.9% 10 ML Syringe FLUSH PRN; +Sodium Chloride 0.9% 2.5 ML Syringe FLUSH PRN; +cefOXitin 1 GM in Premix Bag 1 BAG IV ONE
[2017-06-06] MEDS ORDERED: Propofol 200 MG/20 ML SDV ONE ×2 (11:32→13:33)
[2017-06-06] MEDS ORDERED: Midazolam 1 MG/ML 2 ML SDV ONE ×2 (11:32→13:10)
[2017-06-06] MEDS ORDERED: fentaNYL 100 MCG/2 ML SDV ONE (11:32)
--- NOTE | 2017-06-06 11:44 | PCM.PREANE ---
Preanesthetic Assessment - Anesthesia/Transfusion/Family Hx Anesthesia History: Prior Anesthesia Without Reaction Family History of Anesthesia Reaction: No Transfusion History: Prior Transfusion Without Reaction Intubation History: Unknown - Review of Systems General: No Symptoms Pulmonary: No Symptoms Cardiovascular: No Symptoms Gastrointestinal: No Symptoms Neurological: No Symptoms Other: Reports: None - Physical Assessment O2 Sat by Pulse Oximetry: 96 Respiratory Rate: 16 Vital Signs: Last Vital Signs Temp 36.2 C 06/06/17 11:15 Pulse 95 06/06/17 11:15 Resp 16 06/06/17 11:15 BP 112/77 06/06/17 11:15 Pulse Ox 96 06/06/17 11:15 Height: 1.75 m Weight: 105.687 kg ASA Class: 3 Mental Status: Alert & Oriented x3 Airway Class: Mallampati = 2 Dentition: Reports: Normal Dentition Thyro-Mental Finger Breadths: 3 Mouth Opening Finger Breadths: 3 ROM/Head Extension: Full Lungs: Clear to Auscultation, Normal Respiratory Effort Cardiovascular: Regular Rate, Regular Rhythm - Allergies Allergies/Adverse Reactions: Allergies Allergy/AdvReac Type Severity Reaction Status Date / Time Penicillins Allergy Nausea and Verified 01/17/17 11:13 Vomiting - Blood Blood Available: No - Anesthesia Plan Pre-Op Medication Ordered: None - Acknowledgements Anesthesia Type Planned: MAC Pt an Appropriate Candidate for the Planned Anesthesia: Yes Alternatives and Risks of Anesthesia Discussed w Pt/Guardian: Yes Pt/Guardian Understands and Agrees with Anesthesia Plan: Yes PreAnesthesia Questionnaire HEENT History: Reports: Allergic Rhinitis Other HEENT History: wears one contact Cardiovascular History: Reports: Arrhythmia, High Cholesterol, Other (See Below) Other Cardiovascular History: has SVT since age 18, was put on Cartia XT but is not taking it at this time because "it makes me tired", had been on propranolol prior to the cartia and would like to get back on propranolol Respiratory History: Reports: Sleep Apnea Other Respiratory History: does not use CPAP Gastrointestinal History: Reports: None Genitourinary History: Reports: None 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 , Musculoskeletal History: Reports: Fracture, Fibromyalgia, Osteoarthritis, Osteoporosis Other Musculoskeletal History: fx of left ankle, foot Neurological History: Reports: Migraines, Neuropathy, Peripheral (due to chemo therapy) Psychiatric History: Reports: ADHD, Anxiety, Depression, Panic Attack, PTSD Endocrine/Metabolic History: Reports: Obesity/BMI 30+ Hematologic History: Reports: Blood Transfusion(s) Other Hematologic History: "transfusion with my leg surgery" Immunologic History: Reports: None Oncologic (Cancer) History: Reports: Breast (infiltrating ductal cell carcinoma of right breast) Other Oncologic History: ezequiel cath placement for chemo plus 35 radiation treatments Dermatologic History: Reports: Other (See Below) Other Dermatologic History: rosacea - Infectious Disease History Infectious Disease History: Reports: Shingles - Past Surgical History Head Surgeries/Procedures: Reports: None HEENT Surgical History: Reports: Naso-Sinus Surgery, Tonsillectomy Cardiovascular Surgical History: Reports: None Respiratory Surgical History: Reports: None GI Surgical History: Reports: None Female Surgical History: Reports: Breast Biopsy, D&C, Other (See Below) Other Female Surgeries/Procedures: Laparoscopy with Salpingectomy (ectopic ), breast lumpectomy for cancer Endocrine Surgical History: Reports: None Neurological Surgical History: Reports: None Musculoskeletal Surgical History: Reports: ORIF Other Musculoskeletal Surgeries/Procedures:: left ankle, surgical tx of left femur to shorten leg Oncologic Surgical History: Reports: Lumpectomy Other Oncologic Surgeries/Procedures: right side Dermatological Surgical History: Reports: None - SUBSTANCE USE Smoking Status *Q: Former Smoker Tobacco Use Within Last Twelve Months: No Recreational Drug Use History: No - HOME MEDS Home Medications: Home Meds ALPRAZolam [Alprazolam] 1 tab PO ASDIRECTED PRN 04/27/15 [History] SUMAtriptan Succinate [Imitrex] 100 mg PO ASDIRECTED PRN 04/27/15 [History] traMADol [Ultram] 1 - 2 tab PO BID PRN 04/27/15 [History] Calcium Carbonate/Vitamin D3 [Calcium 600 + Vit D 200] 1 - 2 tab PO DAILY [History] Fish Oil/[place]-3 Fatty Acids [Fish Oil 1,000 MG] 1 cap PO BID 03/26/16 [History] Minocycline HCl 1 cap PO BID PRN 03/26/16 [History] Vit B12/Fa/Pyridoxine HCl/AA15 [Glycotrol] 1,000 mcg PO DAILY 03/26/16 [History] Anastrozole [Arimidex] 1 mg PO ASDIRECTED 01/30/17 [History] Naratriptan HCl 1 tab PO ASDIRECTED PRN 01/30/17 [History] buPROPion HCl [Wellbutrin Xl] 300 mg PO DAILY 01/30/17 [History] Diltiazem HCl [Cartia Xt] 120 mg PO DAILY 06/04/17 [History] - CURRENT (IN HOUSE) MEDS Current Meds: Current Medications Lactated Ringer's (Ringers, Lactated) 1,000 mls @ 125 mls/hr IV ASDIRECTED MULUGETA Last Admin: 06/06/17 11:31 Dose: 125 mls/hr Sodium Chloride (Saline Flush) 10 ml FLUSH ASDIRECTED PRN PRN Reason: Keep Vein Open Sodium Chloride (Saline Flush) 2.5 ml FLUSH ASDIRECTED PRN PRN Reason: Keep Vein Open Discontinued Medications Fentanyl (Sublimaze) Confirm Administered Dose 100 mcg .ROUTE .STK-MED ONE Stop: 06/06/17 11:33 Cefoxitin Sodium 1 gm/ Premix 50 mls @ 100 mls/hr IV ONETIME ONE Stop: 05/31/17 15:11 Midazolam HCl (Versed 1 Mg/Ml) Confirm Administered Dose 2 mg .ROUTE .STK-MED ONE Stop: 06/06/17 11:33 Propofol (Diprivan 20 Ml) Confirm Administered Dose 200 mg .ROUTE .STK-MED ONE Stop: 06/06/17 11:33
[2017-06-06] MEDS ORDERED: fentaNYL 100 MCG/2 ML SDV IVPUSH PRN (12:30)
[2017-06-06] MEDS ORDERED: Bupivacaine 0.5% 10 ML SDV ONE (12:54)
[2017-06-06] MEDS ORDERED: Lidocaine 1% 20 ML MDV ONE (12:55)
[2017-06-06] MEDS ORDERED: Lidocaine 1% with EPINEPHrine 1:100,000 20 ML MDV ONE (13:02)
--- NOTE | 2017-06-06 14:40 | PCM.POSTAN ---
POST ANESTHESIA ASSESSMENT - MENTAL STATUS Mental Status: Alert, Oriented - RESPIRATORY Respiratory Status: Respiratory Rate WNL, Airway Patent, O2 Saturation Stable - CARDIOVASCULAR CV Status: Pulse Rate WNL, Blood Pressure Stable - GASTROINTESTINAL GI Status: No Symptoms - POST OP HYDRATION Hydration Status: Adequate & Stable
--- NOTE | 2017-06-06 14:42 | PCM.OPNOTE ---
- General Post-Op/Procedure Note Date of Surgery/Procedure: 06/06/17 Operative Procedure(s): Port a cath removal, colonoscopy Findings: Removal left subclavian port, normal colonoscopy Pre Op Diagnosis: Breast cancer, colonoscopy Post-Op Diagnosis: same Anesthesia Technique: MAC Primary Surgeon: Nasima Ruiz Condition: Good
[2017-06-06] MEDS ORDERED: Acetaminophen/oxyCODONE 325-5 MG Tab PO PRN (15:06)
--- NOTE | 2017-06-06 15:13 | PCM48HPAN ---
Post Anesthesia Note - EVALUATION WITHIN 48HRS OF ANESTHETIC Vital Signs in Normal Range: Yes Patient Participated in Evaluation: Yes Respiratory Function Stable: Yes Airway Patent: Yes Cardiovascular Function Stable: Yes Hydration Status Stable: Yes Pain Control Satisfactory: Yes Nausea and Vomiting Control Satisfactory: Yes Mental Status Recovered: Yes
[2017-06-06 16:39] VITALS: BP 125/72
--- NOTE | 2017-06-06 21:11 | OR ---
SURGEON: NASIMA RUIZ MD DATE OF PROCEDURE: 06/06/2017 PREOPERATIVE DIAGNOSES: History of breast cancer, encountered for screening colonoscopy. POSTOPERATIVE DIAGNOSES: Port removed, normal colonoscopy. PROCEDURE PERFORMED: Port-A-Cath removal, screening colonoscopy. ENDOSCOPIST: Dr. Nasima Ruiz. INSTRUMENT USED: Olympus colonoscope. ANESTHESIA: MAC. PREPARATION: Good. LIMITATIONS: None. EXTENT OF EXAM: To the cecum. FINDINGS: Intact left subclavian Port-A-Cath, normal colonoscopy. COMPLICATIONS: None. INDICATIONS: The patient is a 51-year-old female, who came to clinic for 2 reasons. The patient has a history of breast cancer and is now completed all of her chemotherapy treatment. She is here for removal of her Port-A-Cath. The patient has also never had a colonoscopy and is here for a screening colonoscopy. We discussed both procedures. I would start with the clean case which will be the Port-A-Cath removal and then afterwards performed the colonoscopy. We discussed the procedures as well as expected perioperative course. We discussed the risks with each procedure which included bleeding, infection, or damage to surrounding structures, including hemothorax or pneumothorax with the Port-A-Cath removal and the possibility of perforation with colonoscopy. The patient verbalized understanding and wishes to proceed. PROCEDURE IN DETAIL: The patient was brought to the OR and placed on the OR table in supine position. A time-out was completed verifying the patient's name, age, date of , allergies, and procedure to be performed. Monitored anesthesia care was induced. The left chest was prepped and draped in usual standard fashion. The area under her previous scar was anesthetized with 0.5% Marcaine plain. An 11 blade was used to open up her previous incision. Cautery was used to dissect down to the level of the Port-A-Cath. The scar capsule was entered and all adhesions were taken down sharply with the Metzenbaum scissors and cautery. Once the Port-A-Cath device had been freed from its scar capsule, gentle pressure was used to pull the catheter tubing out through the wound. The catheter tubing appeared to be intact. The port and catheter tubing were sent to pathology. Hemostasis was achieved with cautery. The wound was then closed with an interrupted 3-0 Vicryl in subcutaneous fat. The skin was closed with running 4-0 Monocryl suture. Steri-Strips and sterile dressings were applied. This portion of the procedure was terminated and the patient was transferred to the OR cart for her colonoscopy. She was placed in the left lateral decubitus position. A digital rectal exam was performed and was found to be normal. A well lubricated colonoscope was inserted into the rectum and advanced under direct visualization to the level of cecum. The cecum was identified by both visual and anatomic landmarks. A photograph was taken of the cecal cap. The scope was then fully withdrawn while examining the color, texture, anatomy, and integrity of the mucosa from the cecum to the anal canal. The findings were consistent with normal colonic mucosa. The scope was then brought into the rectum and retroflexed to allow visualization of the anal canal opening. This appeared normal and a photograph was taken. The scope was then straightened out and removed from the patient. The cecum to anus time was greater than 10 minutes. The patient tolerated both procedures well and was taken to PACU in stable condition. NICOLE OAKES /[id number] [place]
== END 2017-06-06 15:30 | disposition home or self-care (01) ==
LOC: MW.SDS 11:04
PROVIDERS: ATTEND Surgery
DX: Z45.2 Encounter for adjustment and management of vascular access device (principal); Z12.11 Encounter for screening for malignant neoplasm of colon; I49.9 Cardiac arrhythmia, unspecified; E78.00 Pure hypercholesterolemia, unspecified; I47.1 Supraventricular tachycardia; G43.909 Migraine, unspecified, not intractable, without status migrainosus; M79.7 Fibromyalgia; M19.90 Unspecified osteoarthritis, unspecified site; G47.33 Obstructive sleep apnea (adult) (pediatric); M81.0 Age-related osteoporosis without current pathological fracture; G62.0 Drug-induced polyneuropathy; T45.1X5A Adverse effect of antineoplastic and immunosuppressive drugs, initial encounter; F41.8 Other specified anxiety disorders; F41.0 Panic disorder [episodic paroxysmal anxiety]; F43.10 Post-traumatic stress disorder, unspecified; L71.9 Rosacea, unspecified; E66.9 Obesity, unspecified; Z68.34 Body mass index [BMI] 34.0-34.9, adult; Z88.0 Allergy status to penicillin; Z80.0 Family history of malignant neoplasm of digestive organs; Z85.3 Personal history of malignant neoplasm of breast; Z98.890 Other specified postprocedural states; Z82.3 Family history of stroke; Z79.899 Other long term (current) drug therapy
CPT/HCPCS: 36589; 45378; A9270; J2250; J3010; J7120; 00400; 88300; J2704

== ENCOUNTER 2019-10-08 06:31 | Day surgery (SDC) | payer BC ==
[~2019-10-08 06:31] MED LIST changes: +Clindamycin Phosphate in D5W 600 MG in Premix Bag 1 BAG IV ONE; +Sodium Chloride 0.9% 10 ML SDV IV PRN; -cefOXitin 1 GM in Premix Bag 1 BAG IV ONE
[2019-10-08] MEDS ORDERED: Clindamycin Phosphate in D5W 50 ML ONE (07:10)
[2019-10-08] MEDS ORDERED: Propofol 200 MG/20 ML SDV ONE (07:15)
[2019-10-08] MEDS ORDERED: Lidocaine 2% 5 ML SDV ONE ×2 (07:15→07:16)
[2019-10-08] MEDS ORDERED: Ondansetron 4 MG/2 ML SDV ONE (07:16)
[2019-10-08] MEDS ORDERED: fentaNYL 250 MCG/5 ML SDV ONE (07:16)
--- NOTE | 2019-10-08 07:18 | PCM.PREANE ---
Preanesthetic Assessment - Anesthesia/Transfusion/Family Hx Anesthesia History: Prior Anesthesia Reaction Type of Anesthesia Reaction: Excessive Nausea/Vomiting Family History of Anesthesia Reaction: No Transfusion History: Prior Transfusion Without Reaction Intubation History: Unknown - Review of Systems General: No Symptoms Pulmonary: No Symptoms Cardiovascular: No Symptoms Gastrointestinal: No Symptoms Neurological: No Symptoms Other: Reports: None - Physical Assessment NPO Status Date: 10/07/19 Height: 5 ft 9 in Weight: 102.512 kg ASA Class: 2 Mental Status: Alert & Oriented x3 Airway Class: Mallampati = 2 Dentition: Reports: Normal Dentition ROM/Head Extension: Full Lungs: Clear to Auscultation, Normal Respiratory Effort Cardiovascular: Regular Rate, Regular Rhythm - Allergies Allergies/Adverse Reactions: Allergies Allergy/AdvReac Type Severity Reaction Status Date / Time Penicillins Allergy Nausea and Verified 01/17/17 11:13 Vomiting - Blood Blood Available: No - Anesthesia Plan Pre-Op Medication Ordered: None - Acknowledgements Anesthesia Type Planned: General Anesthesia Pt an Appropriate Candidate for the Planned Anesthesia: Yes Alternatives and Risks of Anesthesia Discussed w Pt/Guardian: Yes Pt/Guardian Understands and Agrees with Anesthesia Plan: Yes Additional Comments: PMH: aba does not used cpap, instructiong given, SVT- long hx but more frequent since starting chemo, anx/dep/ptsc PLAN: ga/lma,prophylactic antiemetics PreAnesthesia Questionnaire HEENT History: Reports: Allergic Rhinitis Other HEENT History: wears contacts/glasses Cardiovascular History: Reports: Arrhythmia, High Cholesterol, Other (See Below) Other Cardiovascular History: hx SVT Respiratory History: Reports: Sleep Apnea Other Respiratory History: does not use CPAP Gastrointestinal History: Reports: Chronic Constipation, GERD Other Gastrointestinal History: GERD after chemo, chronic constipation from chemo Genitourinary History: Reports: None CHEESE TESTER History: Reports: Ectopic , Musculoskeletal History: Reports: Fracture, Fibromyalgia, Osteoarthritis Other Musculoskeletal History: fx of left ankle, fx 5th metatarsal Neurological History: Reports: Migraines, Neuropathy, Peripheral Other Neuro History: chemo induced neuropathy Psychiatric History: Reports: ADHD, Anxiety, Depression, Panic Attack, PTSD Endocrine/Metabolic History: Reports: Obesity/BMI 30+, Osteopenia Hematologic History: Reports: Blood Transfusion(s) Other Hematologic History: "may have had transfusion with my leg surgery" Immunologic History: Reports: None Oncologic (Cancer) History: Reports: Breast, Other (See Below) Other Oncologic History: ezequiel cath placement for chemo Dermatologic History: Reports: Other (See Below) Other Dermatologic History: rosacea - Infectious Disease History Infectious Disease History: Reports: Shingles - Past Surgical History Head Surgeries/Procedures: Reports: None HEENT Surgical History: Reports: Naso-Sinus Surgery, Tonsillectomy Cardiovascular Surgical History: Reports: None Respiratory Surgical History: Reports: None GI Surgical History: Reports: None Female Surgical History: Reports: Breast Biopsy, D&C, Mastectomy, Other (See Below) Other Female Surgeries/Procedures: Laparoscopy for ectopic , blanquita mastectomy Endocrine Surgical History: Reports: None Neurological Surgical History: Reports: None Musculoskeletal Surgical History: Reports: ORIF, Other (See Below) Other Musculoskeletal Surgeries/Procedures:: ORIF left ankle fx, surgical tx of left femur to shorten leg, hx surgery for fx 5th metatarsal Oncologic Surgical History: Reports: Lumpectomy, Mastectomy Other Oncologic Surgeries/Procedures: right side. Bilateral Mastectomy 06/12/19 Dermatological Surgical History: Reports: Other (See Below) - SUBSTANCE USE Smoking Status *Q: Former Smoker Tobacco Use Within Last Twelve Months: No - HOME MEDS Home Medications: Home Meds ALPRAZolam [Alprazolam] 1 tab PO ASDIRECTED PRN 04/27/15 [History] SUMAtriptan Succinate [Imitrex] 100 mg PO ASDIRECTED PRN 04/27/15 [History] traMADol [Ultram] 1 - 2 tab PO BID PRN 04/27/15 [History] Calcium Carbonate/Vitamin D3 [Calcium 600 + Vit D 200] 1 - 2 tab PO DAILY [History] Fish Oil/[place]-3 Fatty Acids [Fish Oil 1,000 MG] 1 cap PO BID 03/26/16 [History] Anastrozole [Arimidex] 1 mg PO DAILY 01/30/17 [History] buPROPion HCl [Wellbutrin Xl] 300 mg PO DAILY 01/30/17 [History] Diltiazem HCl [Cartia Xt] 120 mg PO BEDTIME 06/04/17 [History] Cetirizine [ZyrTEC] 10 mg PO DAILY PRN 10/05/19 [History] Cimetidine [Heartburn Relief] 200 mg PO DAILY 10/05/19 [History] Docusate Sodium [Colace Clear] 3 tab PO DAILY 10/05/19 [History] Doxycycline [Vibramycin] 100 mg PO BID 10/05/19 [History] Minocycline HCl 100 mg PO BID PRN 10/05/19 [History] Mometasone Furoate [Nasonex [place]] 1 spray NASBOTH DAILY 10/05/19 [History] Multivitamin/Iron/Folic Acid [Centrum Women Tablet] 1 tab PO DAILY 10/05/19 [ History] Vitamin B Complex 1 tab PO DAILY 10/05/19 [History] - CURRENT (IN HOUSE) MEDS Current Meds: Current Medications Lactated Ringer's (Ringers, Lactated) 1,000 mls @ 125 mls/hr IV ASDIRECTED MULUGETA Last Admin: 10/08/19 07:05 Dose: 125 mls/hr Sodium Chloride (Saline Flush) 10 ml FLUSH ASDIRECTED PRN PRN Reason: Keep Vein Open Sodium Chloride (Saline Flush) 2.5 ml FLUSH ASDIRECTED PRN PRN Reason: Keep Vein Open Sodium Chloride (Normal Saline) 10 ml IV ASDIRECTED PRN PRN Reason: IV Use Discontinued Medications Clindamycin Phosphate 600 mg/ (Premix) 50 mls @ 100 mls/hr IV ONETIME ONE Stop: 10/05/19 09:39 Clindamycin Phosphate (Cleocin In D5w) Confirm Administered Dose 50 mls @ as directed .ROUTE .STK-MED ONE Stop: 10/08/19 07:11 Last Admin: 10/08/19 07:13 Dose: 100 mls/hr
[2019-10-08] MEDS ORDERED: Bupivacaine 0.5% 10 ML SDV ONE (07:28)
[2019-10-08] MEDS ORDERED: Heparin Sodium 100 Units/ML 3 ML Syringe ONE (07:28)
[2019-10-08] MEDS ORDERED: Lidocaine 1% 20 ML MDV ONE (07:29)
[2019-10-08] MEDS ORDERED: Octyl 2-Cyanoacrylate 1 Tube ONE ×2 (07:29→08:45)
[2019-10-08] MEDS ORDERED: Iopamidol 200-M 10 ML vial ITHECAL ONE (07:29)
[2019-10-08] MEDS ORDERED: Atropine 0.1 MG/ML 10 ML Syringe IVPUSH PRN ×2 (08:43)
[2019-10-08] MEDS ORDERED: fentaNYL 100 MCG/2 ML SDV IVPUSH PRN (08:43)
[2019-10-08] MEDS ORDERED: Naloxone 0.4 MG/ML Syringe IVPUSH PRN (08:43)
[2019-10-08] MEDS ORDERED: Albuterol 0.083% 2.5 MG/3 ML Neb Soln NEB PRN (08:43)
[2019-10-08] MEDS ORDERED: 50% Dextrose in Water 50 ML Syringe IVPUSH PRN (08:43)
[2019-10-08] MEDS ORDERED: EPINEPHrine 1:10,000 1 MG/10 ML Syringe IVPUSH PRN (08:43)
--- NOTE | 2019-10-08 09:37 | PCM.OPNOTE ---
<Asha West - Last Filed: 10/08/19 09:39> - General Post-Op/Procedure Note Date of Surgery/Procedure: 10/08/19 Operative Procedure(s): Left subclavian port-a-cath removal. Right Internal jugular port-a-cath placement Pre Op Diagnosis: Left subclavian port-a-cath removal. Right Internal jugular port-a-cath placement Post-Op Diagnosis: Left subclavian port-a-cath removal. Right Internal jugular port-a-cath placement Anesthesia Technique: General LMA Primary Surgeon: Nasima Ruiz Fluid Replacement, Intraop: 700 Output, Urine Amount: 0 EBL in mLs: 20 Complications: None Condition: Good <Nasima Ruiz - Last Filed: 10/08/19 09:45> - General Post-Op/Procedure Note Free Text/Narrative:: Intake & Output 10/07/19 10/08/19 10/08/19 22:59 06:59 14:59 Intake Total 700 Output Total 0 Balance 700
--- NOTE | 2019-10-08 09:57 | CR ---
Chest: Portable view of the chest was obtained. Comparison: Prior chest x-ray of 09/25/19. Heart size and mediastinum are within normal limits for portable technique. Right-sided Port-A-Cath is seen with tip lying within the superior vena cava. Lungs show no acute parenchymal change. Mild scoliosis is noted within the spine. No acute osseous finding is appreciated. Impression: 1. Right-sided Port-A-Cath with tip lying within the superior vena cava. 2. Nothing acute is appreciated on portable chest x-ray. Diagnostic code #2 Study was dictated in MDT
--- NOTE | 2019-10-08 09:58 | PCM48HPAN ---
Post Anesthesia Note - EVALUATION WITHIN 48HRS OF ANESTHETIC Vital Signs in Normal Range: Yes Patient Participated in Evaluation: Yes Respiratory Function Stable: Yes Airway Patent: Yes Cardiovascular Function Stable: Yes Hydration Status Stable: Yes Pain Control Satisfactory: Yes Nausea and Vomiting Control Satisfactory: Yes Mental Status Recovered: Yes Vital Signs: Last Vital Signs Temp 35.8 C L 10/08/19 09:29 Pulse 108 H 10/08/19 09:49 Resp 11 L 10/08/19 09:49 BP 169/81 H 10/08/19 09:49 Pulse Ox 95 10/08/19 09:49
--- NOTE | 2019-10-08 10:19 | CR ---
Chest: Single fluoroscopic spot view was obtained utilizing C-arm device of the upper right chest. Study shows placement of right-sided Port-A-Cath. Tip of catheter lies within the superior vena cava. Fluoroscopy time given as 38.4 seconds. Impression: 1. Procedural study as described above. Diagnostic code #2 Study was dictated in MDT
[2019-10-08] MEDS ORDERED: Acetaminophen/oxyCODONE 325-5 MG Tab PO ONE (10:43)
[2019-10-08] MEDS ORDERED: Acetaminophen/oxyCODONE 325-5 MG Tab ONE (10:50)
--- NOTE | 2019-10-08 11:15 | PCM.POSTAN ---
POST ANESTHESIA ASSESSMENT - MENTAL STATUS Mental Status: Alert, Oriented - VITAL SIGNS Vital Signs: Last Vital Signs Temp 35.8 C L 10/08/19 09:29 Pulse 108 H 10/08/19 09:49 Resp 11 L 10/08/19 09:49 BP 169/81 H 10/08/19 09:49 Pulse Ox 95 10/08/19 09:49 - RESPIRATORY Respiratory Status: Respiratory Rate WNL, Airway Patent, O2 Saturation Stable - CARDIOVASCULAR CV Status: Pulse Rate WNL, Blood Pressure Stable - GASTROINTESTINAL GI Status: No Symptoms - POST OP HYDRATION Hydration Status: Adequate & Stable (patient meets PAR discharge criteria)
[2019-10-08 12:23] VITALS: BP 178/86; PULSE 85
--- NOTE | 2019-10-08 14:57 | OR ---
SURGEON: NASIMA RUIZ MD DATE OF PROCEDURE: 10/08/2019 PREOPERATIVE DIAGNOSIS: Breast cancer. POSTOPERATIVE DIAGNOSIS: Breast cancer. PROCEDURES PERFORMED: 1. Removal, left subclavian Port-A-Cath. 2. Insertion, right internal jugular Port-A-Cath. PRIMARY SURGEON: Nasima Ruiz MD EDUCATION GENERAL MANAGER: [employer] Operator: Dr. Asha West, residential care officer. ANESTHESIA: General LMA, local. FLUIDS: 700 mL of crystalloid. ESTIMATED BLOOD LOSS: 20 mL. FINDINGS: Intact left subclavian Port-A-Cath. Insertion, right internal jugular Port-A- Cath. COMPLICATIONS: None. INDICATIONS: The patient is a 54-year-old female who is currently undergoing chemotherapy for recurrent breast cancer. She has been having difficulty with her current Port-A- Cath and so a fluoroscopic exam was performed. This showed incorrect placement of the catheter tubing within the azygos vein. After discussion with her medical oncologist, it was felt that she should have this removed and a new Port- A-Cath placed. The patient and I discussed the procedure in clinic. I went over all of the risks including bleeding, infection, or damage to surrounding structures including hemothorax, pneumothorax, or abnormal heart rhythms. The patient verbalized understanding and wishes to proceed. PROCEDURE IN DETAIL: The patient was brought into the operating room and placed on the OR table in supine position. A time-out was completed verifying the patient's name, age, date of , allergies, and procedure to be performed. General LMA anesthesia was induced. The patient's arms were tucked at her sides and a shoulder roll placed under her shoulders. Care was taken to support her neck appropriately. I then used an ultrasound to verify the vascular anatomy of the right side of the neck. I could clearly see the right internal jugular vein and associated right carotid artery. An ultrasound photograph of this was taken. The bilateral neck and chest areas were prepped and draped in usual standard fashion. I started my case by removing her old port. A 4-cm elliptical incision was made over her previous scar. The old scar was excised. A piece of tissue removed was 4 cm x 3 mm x 2 mm. This scar tissue was discarded. I then used electrocautery to dissect through the subcutaneous fat layer down to the scar capsule. The scar capsule was opened and I identified the sutures on either side of the Port-A-Cath device. These were cut and excised using Metzenbaum scissors. The port was then delivered out of the scar capsule and gentle pressure was used to pull the catheter tubing out along with the port. Pressure was then held for several minutes in the operative field to achieve hemostasis. Once hemostasis had been achieved, I then closed the old port site with interrupted layers of 3-0 Vicryl suture. The skin was then closed with a running 4-0 Monocryl stitch and Dermabond was applied. I and my team changed gloves and then I began the right internal jugular Port-A-Cath placement portion of the case. Using a sterile ultrasound probe, I identified the vascular anatomy of the right side of the neck. I injected 1% lidocaine and 0.5% Marcaine along the right side of the neck down onto the chest wall, where the port would be inserted. The patient was placed into Trendelenburg position. Using ultrasound guidance, I placed a needle into the right internal jugular vein. An immediate return of venous blood was noted. A guidewire was placed down the needle and into the chest. The needle was removed. Fluoroscopy was brought in. The guidewire had flipped into the right subclavian artery. Under fluoroscopic guidance, I adjusted the guidewire and placed it down the vena cava. Once my placement of the guidewire was adequate, I secured the guidewire externally using a hemostat on the surgical drapes. I then turned my attention to the right side of the chest. A 4-cm incision was made on the anterior chest wall about 2 fingerbreadths below the lateral clavicle. I then used cautery to dissect down to the level of subcutaneous fat and create a subcutaneous chest wall pocket. I then tunneled my catheter tubing from my chest wall site along the subcutaneous floor layer apprentice to the guidewire insertion site. A vascular sheath and dilator were then placed over the guidewire and using fluoroscopic guidance, I dilated up my vascular tract. The guidewire and vascular dilator were removed leaving the vascular sheath in place. The catheter tubing was placed down the sheath and the vascular sheath was peeled away. The patient began to have ectopy. Using fluoroscopic guidance, I pulled the catheter tubing back into the superior vena cava. After doing this, the ectopy stopped. C-arm x-rays were taken of the chest wall. I then pulled back my catheter tubing externally and a good return of venous blood was noted. I then flushed the catheter tubing with injectable saline. The catheter tubing was trimmed at 25 cm and placed on the Port-A-Cath device. The port was then placed into the chest wall and secured on either side with 2-0 Prolene sutures. The Port-A-Cath was accessed and good return of venous blood was noted. It was then locked with 3.5 mL of heparinized saline. The chest wall site was closed with layers of interrupted 3-0 Vicryl sutures and the skin was closed with a running 4-0 Monocryl stitch. The insertion site at the neck was closed with an interrupted 4-0 Monocryl suture. Dermabond was applied. Once the Dermabond was completely dried, sterile dressings were applied. The patient tolerated the procedure well and was taken to the PACU in stable condition. A chest x-ray was taken in the PACU which showed no immediate complications and good placement of the Port-A-Cath tubing within the SVC. All counts were complete and correct at the end of the case. NICOLE / CHAMP /[id number]
== END 2019-10-08 11:35 | disposition home or self-care (01) ==
LOC: MW.SDS 06:31
PROVIDERS: ATTEND Surgery
DX: T82.524A Displacement of infusion catheter, initial encounter (principal); C50.911 Malignant neoplasm of unspecified site of right female breast; E78.5 Hyperlipidemia, unspecified; F41.8 Other specified anxiety disorders; G62.2 Polyneuropathy due to other toxic agents; T45.1X5A Adverse effect of antineoplastic and immunosuppressive drugs, initial encounter; Z87.891 Personal history of nicotine dependence; Z88.0 Allergy status to penicillin; Z79.899 Other long term (current) drug therapy
CPT/HCPCS: 36561; 36590; 71045; 76000; A9270; J1642; J2001; J2405; J2704; J3010; J3490; J7120; S0077; 00532; 88300; Q9966